=== PATIENT | female | born 2000 | race Two or more races ===

== ENCOUNTER 2022-08-01 10:23 | Emergency (ER) | payer OTHER, SELFPAY ==
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
[2022-08-01 10:57] VITALS: BP 106/65; PULSE 95; RESP 18; TEMP 36.9; O2SAT 98; BMI 28.1
[2022-08-01 13:45] VITALS: BP 104/53; PULSE 58; RESP 18; TEMP 36.8; O2SAT 100
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
[2022-08-01 14:14] LABS: UPreg QC Valid YES; Urine Pregnancy NEGATIVE (NEGATIVE)
[2022-08-01] MEDS: Ketorolac Tromethamine 60 MG/2 ML VIAL IM (14:27)
== END 2022-08-01 15:47 | disposition home or self-care (01) ==
PROVIDERS: Emergency Provider Emergency Medicine
DX: M54.2 Cervicalgia (principal); R51.9 Headache, unspecified; Z79.899 Other long term (current) drug therapy
CPT/HCPCS: 70450; 81025; 96372; 99283; 99284; J1885